=== PATIENT | female | born 1955 | race Caucasian/White ===

== ENCOUNTER 2017-09-07 19:31 | Emergency (ER) | payer OTHER ==
[~2017-09-07] VITALS: Ht 174 cm; Wt 59.1 kg
[2017-09-07 19:36] VITALS: BP 204/94; PULSE 105; RESP 18; TEMP 102.5; O2SAT 98
[2017-09-07] MEDS ORDERED: SODIUM CHLOR 0.9% 1000 ML INJ 1,000 ML IV ONE (19:45)
[2017-09-07 19:57] VITALS: BP 183/96; PULSE 106; RESP 16; O2SAT 98
[2017-09-07 21:00] VITALS: BP 148/80; PULSE 90; RESP 16; O2SAT 99
[2017-09-07 21:00] LABS: AUTOMATED NEUTROPHIL # 10.3 TH/MM3 (1.8-7.7); BASOPHIL % 0.2 % (0.0-2.0); HEMATOCRIT 39.6 % (35.0-46.0); HEMOGLOBIN 13.4 GM/DL (11.6-15.3); LYMPH % 11.2 % (9.0-44.0); LYMPHOCYTE # 1.4 TH/MM3 (1.0-4.8); MEAN CORPUSCULAR HEMOGLOBIN 29.4 PG (27.0-34.0); MEAN CORPUSCULAR HGB CONC 33.8 % (32.0-36.0); MEAN PLATELET VOLUME 8.1 FL (7.0-11.0); MONO % 5.1 % (0.0-8.0); MONOCYTE # 0.6 TH/MM3 (0-0.9); NEUT % 83.5 % (16.0-70.0); PLATELET COUNT 217 TH/MM3 (150-450); RED BLOOD COUNT 4.55 MIL/MM3 (4.00-5.30); RED CELL DISTRIBUTION WIDTH 12.9 % (11.6-17.2); WHITE BLOOD COUNT 12.3 TH/MM3 (4.0-11.0)
[2017-09-07 21:04] LABS: BILIRUBIN, URINE NEG (NEG); BLOOD, URINE SMALL (NEG); GLUCOSE,URINE NEG (NEG); KETONE, URINE NEG (NEG); NITRITE,URINE NEG (NEG); PH, URINE 6.5 (5.0-8.5); URINE COLOR LIGHT-YELLOW (YELLW/STRAW); URINE LEUKOCYTE ESTERASE NEG (NEG)
[2017-09-07 21:19] LABS: ALBUMIN 3.7 GM/DL (3.4-5.0); AST (GOT) 28 U/L (15-37); BICARBONATE 25.9 MEQ/L (21.0-32.0); BLOOD UREA NITROGEN 17 MG/DL (7-18); CALCIUM 9.1 MG/DL (8.5-10.1); CHLORIDE 102 MEQ/L (98-107); CREATININE 0.83 MG/DL (0.50-1.00); GLOMERULAR FILTRATION RATE 70 ML/MIN (>89); GLUCOSE,RANDOM 117 MG/DL (74-106); SODIUM (NA) 136 MEQ/L (136-145)
[2017-09-07 21:24] LABS: ALKALINE PHOSPHATASE 86 U/L (45-117); ALT (GPT) 21 U/L (10-53); TOTAL BILIRUBIN ADULT 0.6 MG/DL (0.2-1.0); TOTAL PROTEIN 7.7 GM/DL (6.4-8.2)
--- NOTE | 2017-09-07 21:30 | RADRPT ---
EXAM DATE/TIME: 09/07/2017 20:21 [facility] COMPARISON: No previous studies available for comparison. INDICATIONS : Cough, congestion, body aches, nausea. MEDICAL HISTORY : Hypertension. Asthma. SURGICAL HISTORY : None. ENCOUNTER: Initial ACUITY: 2 days PAIN SCORE: 0/10 LOCATION: Bilateral chest FINDINGS: The heart size is normal. The lungs are hyperinflated. The lung is clear. Significant effusions are n ot seen. CONCLUSION: Hyperinflated lungs. Alvarez Sims MD on September 07, 2017 at 21:26 Board Certified Radiologist. This report was verified electronically.
[2017-09-07 22:18] VITALS: BP 141/69; PULSE 96; RESP 19; TEMP 97.9; O2SAT 96
--- NOTE | 2017-09-07 22:50 | RADRPT ---
EXAM DATE/TIME: 09/07/2017 22:23 [facility] COMPARISON: CHEST SINGLE AP, September 07, 2017, 20:21. INDICATIONS : Flank pain and dysuria. ORAL CONTRAST: No oral contrast ingested. RADIATION DOSE: 7.77 CTDIvol (mGy) MEDICAL HISTORY : None SURGICAL HISTORY : None. ENCOUNTER: Initial ACUITY: 1 day PAIN SCALE: 5/10 LOCATION: Bilateral flank TECHNIQUE: Volumetric scanning of the abdomen and pelvis was performed. Using automated exposure control and ad justment of the mA and/or kV according to patient size, radiation dose was kept as low as reasonably achievable to obtain optimal diagnostic quality images. DICOM format image data is available electro nically for review and comparison. FINDINGS: LOWER LUNGS: There are focal areas of consolidation at the posterior medial right lung base. LIVER: Homogeneous density without lesion. There is no dilation of the biliary tree. No calcified gallston es. SPLEEN: Normal size without lesion. PANCREAS: Within normal limits. KIDNEYS: Normal in size and shape. There is no mass, stone, or hydronephrosis. ADRENAL GLANDS: Within normal limits. VASCULAR: There is no aortic aneurysm. BOWEL/MESENTERY: The stomach, small bowel, and colon demonstrate no acute abnormality. There is no free intraperitone al air or fluid. ABDOMINAL WALL: Within normal limits. RETROPERITONEUM: There is no lymphadenopathy. BLADDER: Urinary bladder is only mildly distended. REPRODUCTIVE: Within normal limits. INGUINAL: There is no lymphadenopathy or hernia. MUSCULOSKELETAL: There is degenerative change of the lumbar spine. CONCLUSION: 1. Focal consolidation posterior medial right lung base. 2. Renal stones are not seen. The cause of the patient's flank pain is not seen. Alvarez Sims MD on September 07, 2017 at 22:46 Board Certified Radiologist. This report was verified electronically.
[2017-09-08] MEDS ORDERED: LEVOFLOXACIN 750 MG TAB PO ONE (00:30)
[2017-09-08] MEDS ORDERED: LEVA750T9 PO (00:32)
--- NOTE | 2017-09-08 00:32 | PD ---
HPI . complaint Chief Complaint: Complaint Time Seen by Provider: 19:41 Travel History International Travel<30 days: No Contact w/Intl Traveler<30days: No Traveled to known affect area: No History of Present Illness HPI Bilateral flank ache, and just generally not feeling well for the past several days, notes having dark urine today was concerned she may have an infection. Patient has a history of having pneumonia 18 years ago and urinary tract infection and probable pyelonephritis by history approximately 12 years ago other than that patient has no significant past medical history. Patient denies any quantified fever. [facility] Past Medical History Narrative Medical Past medical history reviewed Diminished Hearing: No Social History Alcohol Use: No Tobacco Use: No Substance Use: No Allergies-Medications (Allergen,Severity, Reaction): Coded Allergies: No Known Allergies (Verified Allergy, Unknown, 09/07/17) Narrative Medication Allergies and medications reviewed Review of Systems Except as stated in HPI: all other systems reviewed are Neg General / Constitutional: No: Fever Eyes: No: Visual changes HENT: No: Headaches Cardiovascular: No: Chest Pain or Discomfort Respiratory: No: Shortness of Breath Gastrointestinal: No: Abdominal Pain Genitourinary: No: Dysuria Musculoskeletal: No: Pain Skin: No Rash Neurologic: No: Weakness Psychiatric: No: Depression Endocrine: No: Polydipsia Hematologic/Lymphatic: No: Easy Bruising Physical Exam Narrative GENERAL: Awake alert oriented 3 no acute distress vital signs afebrile normal and stable SKIN: Warm and dry. Color is normal no diaphoresis cyanosis or pallor HEAD: Atraumatic. Normocephalic. EYES: Pupils equal and round. No scleral icterus. No injection or drainage. ENT: No nasal bleeding or discharge. Mucous membranes pink and moist. NECK: Trachea midline. No JVD. Supple full range of motion CARDIOVASCULAR: Regular rate and rhythm. S1-S2 no murmurs rubs or gallops RESPIRATORY: No accessory muscle use. Clear to auscultation. Breath sounds equal bilaterally. GASTROINTESTINAL: Abdomen soft, non-tender, nondistended. Hepatic and splenic margins not palpable. No CVA tenderness bilateral MUSCULOSKELETAL: Extremities without clubbing, cyanosis, or edema. No obvious deformities. NEUROLOGICAL: Awake and alert. No obvious cranial nerve deficits. Motor grossly within normal limits. Five out of 5 muscle strength in the arms and legs. Normal speech. PSYCHIATRIC: Appropriate mood and affect; insight and judgment normal. Data Data Last Documented VS Vital Signs Date Time Temp Pulse Resp B/P (MAP) Pulse Ox O2 Delivery O2 Flow Rate FiO2 09/07/17 22:18 97.9 96 19 141/69 (93) 96 Nasal Cannula 2.00 Orders Orders Complete Blood Count With Diff (09/07/17 19:41) Comprehensive Metabolic Panel (09/07/17 19:41) Urinalysis - C+S If Indicated (09/07/17 19:41) Iv Access Insert/Monitor (09/07/17 19:41) Chest, Single Ap (09/07/17 ) Sodium Chlor 0.9% 1000 Ml Inj (Ns 1000 M (09/07/17 19:45) Ct Abd/Pel W/O Iv Contrast (09/07/17 ) Influenzae A/B Antigen (09/07/17 22:04) Levofloxacin (Levaquin) (09/08/17 00:30) Labs Laboratory Tests Test 09/07/17 20:10 White Blood Count 12.3 TH/MM3 Red Blood Count 4.55 MIL/MM3 Hemoglobin 13.4 GM/DL Hematocrit 39.6 % Mean Corpuscular Volume 87.0 FL Mean Corpuscular Hemoglobin 29.4 PG Mean Corpuscular Hemoglobin Concent 33.8 % Red Cell Distribution Width 12.9 % Platelet Count 217 TH/MM3 Mean Platelet Volume 8.1 FL Neutrophils (%) (Auto) 83.5 % Lymphocytes (%) (Auto) 11.2 % Monocytes (%) (Auto) 5.1 % Eosinophils (%) (Auto) 0.0 % Basophils (%) (Auto) 0.2 % Neutrophils # (Auto) 10.3 TH/MM3 Lymphocytes # (Auto) 1.4 TH/MM3 Monocytes # (Auto) 0.6 TH/MM3 Eosinophils # (Auto) 0.0 TH/MM3 Basophils # (Auto) 0.0 TH/MM3 CBC Comment DIFF FINAL Differential Comment Urine Color LIGHT-YELLOW Urine Turbidity CLEAR Urine pH 6.5 Urine Specific [place] 1.007 Urine Protein NEG mg/dL Urine Glucose (UA) NEG mg/dL Urine Ketones NEG mg/dL Urine Occult Blood SMALL Urine Nitrite NEG Urine Bilirubin NEG Urine Urobilinogen LESS THAN 2.0 MG/DL Urine Leukocyte Esterase NEG Urine RBC LESS THAN 1 /hpf Microscopic Urinalysis Comment CULT NOT INDICATED Blood Urea Nitrogen 17 MG/DL Creatinine 0.83 MG/DL Random Glucose 117 MG/DL Total Protein 7.7 GM/DL Albumin 3.7 GM/DL Calcium Level 9.1 MG/DL Alkaline Phosphatase 86 U/L Aspartate Amino Transf (AST/SGOT) 28 U/L Alanine Aminotransferase (ALT/SGPT) 21 U/L Total Bilirubin 0.6 MG/DL Sodium Level 136 MEQ/L Potassium Level 4.4 MEQ/L Chloride Level 102 MEQ/L Carbon Dioxide Level 25.9 MEQ/L Anion Gap 8 MEQ/L Estimat Glomerular Filtration Rate 70 ML/MIN MDM Medical Decision Making Medical Screen Exam Complete: Yes Emergency Medical Condition: Yes Medical Record Reviewed: Yes Differential Diagnosis Acute pyelonephritis, kidney stones, dehydration, bilirubinemia, pneumonia Narrative Course Patient's laboratory examinations reviewed, patient is mildly elevated white blood cell count, as well as small amount of blood in her urine Chest x-ray negative CT abdomen pelvis stone study, negative for having ureterolithiasis but but positive for having right lower lobe pneumonia not seen on chest x-ray Diagnosis Primary Impression: Pneumonia Qualified Codes: J18.9 - Pneumonia, unspecified organism Patient Instructions: Community Acquired Pneumonia (ED), General Instructions Additional Instructions: Take Levaquin 750 mg daily for 10 days. Stay well hydrated. Tylenol/Motrin for aches pains and fever. Follow-up with your doctor. Return for worsening Scripts Levofloxacin (Levaquin) 750 Mg Tablet 750 MG PO DAILY for Infection for 10 Days, #10 TAB 0 Refills Prov: Juan Pablo Hays MD 09/08/17 Disposition: DISCHARGE HOME Condition: Stable Juan Pablo Hays MD Sep 08, 2017 00:32
== END 2017-09-08 00:46 | disposition home or self-care (01) ==
LOC: NEPE 19:31
DX: J18.9 Pneumonia, unspecified organism (principal); R31.9 Hematuria, unspecified
CPT/HCPCS: 71045; 74176; 80053; 81001; 85025; 87804; 99284; J7030